=== PATIENT | female | born 1960 | race Caucasian/White ===

== ENCOUNTER → 2016-04-08 16:23 | Outpatient (CLI) | payer BC | END | disposition home or self-care (01) | LOC: D.MAMMO 13:30 | DX: Z85.3 Personal history of malignant neoplasm of breast (principal) ==

== ENCOUNTER 2016-11-18 15:13 | Inpatient (IN) | payer BC ==
[~2016-11-18] VITALS: Ht 170.2 cm; Wt 63.5 kg
[2016-11-18] MEDS ORDERED: CHOLESTYRAMIN4 G/PK1 PO (15:32)
[2016-11-18 16:19] VITALS: BP 122/44
[2016-11-18 16:37] LABS: BASOPHILS 1.3 % (0-2); EOSINOPHILS 1.5 % (0-7); HEMATOCRIT 22.1 % (36.0-48.0); IMMATURE GRANULOCYTES 0.2 % (0-5); LYMPHOCYTES 25.8 % (15-50); MCHC 26.2 g/dL (31.0-37.0); MEAN PLATELET VOLUME 9.8 fL (7.4-10.4); MONOCYTES 11.2 % (2-11); RBC 3.51 10x6/uL (4.00-5.40); RDW 16.8 % (11.5-14.5); WBC 4.7 10x3/uL (4.8-10.8)
[2016-11-18 16:49] LABS: HEMOGLOBIN 5.8 g/dL (12-16); MCH 16.5 pg (26.0-34.0); PLATELET COUNT 293 10x3/uL (130-400)
[2016-11-18 16:54] LABS: IRON 9 ug/dl (35-150)
[2016-11-18 18:13] LABS: % SATURATION 1 % (15-55); TOTAL IRON BIND CAPACITY 463 ug/dl (260-445)
[2016-11-18 18:16] LABS: UNSAT IRON BIND CAPACITY 454 ug/dl (150-375)
[2016-11-18 20:00] VITALS: BP 103/49
--- NOTE | 2016-11-18 20:05 | NUR ---
PATIENT RESTING IN BED AND DENIES NEEDS AT THIS TIME. PATIENT SIGNED CONSENTS FOR BLOOD TRANSFUSION. BED IN LOWEST POSITION AND CALL LIGHT WITHIN REACH. ENCOURAGED THE PATIENT TO CALL IF SHE HAS NEEDS.
--- NOTE | 2016-11-18 21:20 | NUR ---
BEGAN INFUSING FIRST UNIT OF [facility]S
--- NOTE | 2016-11-19 06:19 | HP ---
PATIENT: FRANCIA NOLASCO MEDICAL RECORD: [id number] ACCOUNT: [id number] LOCATION:[id number] : 64 ADMISSION DATE: 11/18/16 HISTORY AND PHYSICAL EXAMINATION REASON FOR ADMISSION: Orthostatic dizziness and fatigue. HISTORY OF PRESENT ILLNESS: The patient is a 56-year-old female who underwent a hand-assisted laparoscopic regina and small bowel resection with anastomosis for Crohn disease in July 2015. She had felt pretty well since that time until 2 months ago. She notes that when she will stand up, she will get lightheaded. She will have exertional shortness of breath. She also notes some intermittent burning in her epigastric area, not made better by eating. She has noticed no change in her stools or melena. She came to the office today just been feeling very fatigued. She appeared pale and lab work did show a hemoglobin of 5.9, hematocrit of 22, normal platelet count, but MCV of 63. Her H. pylori I and liver functions were negative. Stool for occult blood is strongly positive and she is now admitted to the hospital for anemia workup, transfusion and GI consult. PAST MEDICAL HISTORY: Crohn disease, IBS, constipation predominant, history of pneumonia, lobular carcinoma of the breast, post-lumpectomy, laparoscopic cholecystectomy, hemorrhoidectomy, tubal ligation, breast reduction. FAMILY HISTORY: Father of a stroke, he had cancer and hypertension. Mother has had osteoporosis. Father had cancer of the kidney as well. Paternal grandfather had gastric carcinoma. ALLERGIES: ERYTHROMYCIN, MINOCYCLINE AND SULFA. SOCIAL HISTORY: Nonsmoker, lifelong. Does not drink alcohol. She is . She has 2 living sons out of the home. MEDICATIONS: [employer] a.c. and h.s. REVIEW OF SYSTEMS: GENERAL: Very fatigued in the last few months. No weight change. HEENT: No recent visual change, sinus congestion, or sore throat. RESPIRATORY: No SOB or cough. CARDIAC: No exertional chest pain, claudication or edema. GASTROINTESTINAL: She has had dyspepsia and burning in her epigastric area, not improved with eating or taking antacids. No change in stools or melena. GENITOURINARY: No dysuria. GYNECOLOGIC: No vaginal bleeding. ENDOCRINE: Denies polyuria, polydipsia, heat or cold intolerance. NEUROLOGIC: No history of stroke, TIA, or vascular headaches. INTEGUMENT: No rash or itching. PSYCHIATRIC: Admits to some depressed mood because she has not felt well. PHYSICAL EXAMINATION: VITAL SIGNS: Height is 5 feet 7 inches, blood pressure 110/60 lying, 90/60 sitting with a heart rate of 90 and regular, weight 141 pounds, BMI 22.1, sats 96% on room air. GENERAL: The patient appears pale, but alert and oriented. HEENT: Eyes are clear. Pale palpebral conjunctivae are noted. Pupils HISTORY AND PHYSICAL [id number] FRANCIA NOLASCO reactive. Sclerae nonicteric. Oropharynx unremarkable. NECK: No bruits or masses. CHEST: Clear without wheeze or rales throughout. HEART: Regular rate and rhythm with a faint II/ systolic murmur in the left upper sternal border. No diastolic rumble is noted. BREASTS: Symmetrical grossly. ABDOMEN: Soft, nontender throughout. Bowel sounds are active. Healed surgical scar noted. PELVIC: Deferred. RECTAL: Revealed brown grossly heme-positive stool on Hemoccult. EXTREMITIES: No CC&E. LABORATORY DATA: Hemoglobin 5.9, hematocrit 22 with MCV of 63. H. pylori I, liver functions, thyroid functions were all within normal limits. ASSESSMENT: 1. Symptomatic anemia, microcytic type, most likely of gastrointestinal blood loss. 2. History of Crohn enteritis. 3. History of lobular breast cancer. PLAN: The patient will be admitted to [facility] for transfusion, anemia workup and GI consultation with Dr. Dianna Cullen. TRANSINT:[id number] Voice Confirmation ID: [id number] DOCUMENT ID: [id number] KATHY SIMS MD at 0619 CC: [id number] DICTATION DATE: 11/18/16 1454 DIRECTOR BUSINESS INTELLIGENCE: 11/18/16 1542 ADM IN [place] [id number] [place] [address]
[2016-11-19 07:45] VITALS: BP 122/44; BMI 21.9
[2016-11-19 08:20] LABS: FOLATE (FOLIC ACID) - SERUM >20.0 ng/mL (>3.0)
--- NOTE | 2016-11-19 08:30 | NUR ---
BLOOD FINISHED AT THIS TIME. PT TOLERATED WELL, BED IN LOW POSITION AND CALL LIGHT WITHIN REACH, WILL CONTINUE TO MONITOR.
[2016-11-19 10:20] LABS: BASOPHILS 0.5 % (0-2); EOSINOPHILS 1.4 % (0-7); IMMATURE GRANULOCYTES 1.2 % (0-5); LYMPHOCYTES 15.7 % (15-50); MCH 21.4 pg (26.0-34.0); MCHC 29.8 g/dL (31.0-37.0); MEAN PLATELET VOLUME 10.2 fL (7.4-10.4); MONOCYTES 11.7 % (2-11); NEUTROPHILS 69.5 % (40-80); RDW 24.2 % (11.5-14.5); WBC 5.8 10x3/uL (4.8-10.8)
[2016-11-19 10:48] LABS: HEMATOCRIT 32.6 % (36.0-48.0); HEMOGLOBIN 9.7 g/dL (12-16); PLATELET COUNT 229 10x3/uL (130-400); RBC 4.53 10x6/uL (4.00-5.40)
[2016-11-19 11:00] VITALS: Ht 170.2 cm; Wt 63.5 kg
[2016-11-19 11:09] LABS: APPEARANCE HAZY (CLEAR); BILIRUBIN NEGATIVE (NEGATIVE); COLOR YELLOW (YELLOW); EPITHELIAL CELLS 0-5 /hpf (0-5); GLUCOSE NEGATIVE (NEGATIVE); KETONE NEGATIVE (NEGATIVE); LEUKOCYTE ESTERASE TRACE (NEGATIVE); NITRITE NEGATIVE (NEGATIVE); PROTEIN NEGATIVE (NEGATIVE); RED CELLS - URINE 0-5 /hpf (0-5); SPECIFIC GRAVITY 1.015 (1.005-1.020); UROBILINOGEN NORMAL (NORMAL); WHITE CELLS - URINE OCC /hpf (0-5)
[2016-11-19 11:10] LABS: BACTERIA FEW /hpf (NONE SEEN); MUCUS >1+ /lpf (NONE SEEN)
[2016-11-19 13:28] VITALS: BP 112/71
[2016-11-19 18:10] VITALS: BP 120/59
--- NOTE | 2016-11-19 19:45 | NUR ---
PATIENT RESTING IN BED AND DENIES NEEDS AT THIS TIME. BED IN LOWEST POSITION AND CALL LIGHT WITHIN REACH. ENCOURAGED THE PATIENT TO CALL IF SHE HAS NEEDS.
[2016-11-19 20:00] VITALS: BP 101/49
[2016-11-20 04:00] VITALS: BP 100/46
[2016-11-20] MEDS ORDERED: FERROUS SULFAT325 MG PO (07:24)
[2016-11-20] MEDS ORDERED: PEPCID20 MG PO (07:24)
--- NOTE | 2016-11-20 07:30 | NUR ---
RECIEVED PT DURING WALKING ROUNDS, PT RESTING IN BED WITH NO COMPLAINTS OF PAIN OR DISCOMFORT AT THIS TIME. ASSESSMENT DONE PER FLOWSHEET. BED IN LOW POSITION AND CALL LIGHT WITHIN REACH. WILL CONTINUE TO MONITOR.
[2016-11-20 07:43] LABS: HEMOGLOBIN 9.9 g/dL (12-16); LYMPHOCYTES 23.7 % (15-50); MCH 21.3 pg (26.0-34.0); MEAN PLATELET VOLUME 9.6 fL (7.4-10.4); NEUTROPHILS 59.6 % (40-80); PLATELET COUNT 250 10x3/uL (130-400); RBC 4.65 10x6/uL (4.00-5.40); RDW 23.6 % (11.5-14.5); WBC 6.3 10x3/uL (4.8-10.8)
[2016-11-20 09:23] VITALS: BP 118/44
--- NOTE | 2016-11-20 10:51 | NUR ---
IV REMOVED, CATH INTACT. DISCHARGE INSTRUCTIONS GIVEN AND PT DISCHARGED TO HOME WITH A FAMILY MEMBER.
== END 2016-11-20 10:52 | disposition home or self-care (01) | DRG 378 ==
LOC: D.MS 15:13
PROVIDERS: Internal Medicine Gastroenterology; ADMIT Family Medicine
PROC: 0DB68ZX Excision of Stomach, Via Natural or Artificial Opening Endoscopic, Diagnostic (ICD-10-PCS; 2016-11-19)
PROC: 0DB98ZX Excision of Duodenum, Via Natural or Artificial Opening Endoscopic, Diagnostic (ICD-10-PCS; principal; 2016-11-19 10:15)
DX: K92.2 Gastrointestinal hemorrhage, unspecified (principal); D62 Acute posthemorrhagic anemia; K50.00 Crohn's disease of small intestine without complications; K21.0 Gastro-esophageal reflux disease with esophagitis; K29.70 Gastritis, unspecified, without bleeding

== ENCOUNTER 2018-03-28 08:00 | Outpatient (CLI) | payer BC ==
[2016-11-19 11:00] VITALS: BMI 21.9
[~2018-03-28 08:00] MED LIST: CHOLESTYRAMIN4 G/PK1 PO; FERROUS SULFAT325 MG PO; PEPCID20 MG PO
== END 2018-03-28 09:00 | disposition home or self-care (01) ==
LOC: D.MAMMO 08:00
DX: Z12.31 Encounter for screening mammogram for malignant neoplasm of breast (principal)

== ENCOUNTER → 2018-08-12 10:12 | Outpatient (CLI) | payer BC ==
[2016-11-19 11:00] VITALS: BMI 21.9
== END | disposition home or self-care (01) ==
LOC: D.CT 10:12
PROVIDERS: ATTEND Family Medicine
DX: R10.30 Lower abdominal pain, unspecified (principal); R31.0 Gross hematuria

== ENCOUNTER 2020-01-09 14:30 | Outpatient (CLI) | payer SELFPAY ==
[2016-11-19 11:00] VITALS: BMI 21.9
== END 2020-01-09 17:00 | disposition home or self-care (01) ==
LOC: D.MAMMO 14:30
PROVIDERS: ATTEND Family Medicine
DX: Z12.31 Encounter for screening mammogram for malignant neoplasm of breast (principal)